=== PATIENT | female | born 1955 | race Hispanic/Latino ===

== ENCOUNTER 2016-10-06 09:21 | Emergency (ER) | payer OTHER ==
[~2016-10-06] VITALS: Ht 172.7 cm; Wt 137.0 kg
[2016-10-06] MEDS ORDERED: DULOXETINE HCL60 MG PO (11:30)
[2016-10-06] MEDS ORDERED: LISINOPRIL-HCT1 EAC1 PO (11:30)
[2016-10-06] MEDS ORDERED: MONTELUKAST SOD10 M1 PO (11:30)
[2016-10-06] MEDS ORDERED: LEVOTHYROXINE25 MCG PO (11:30)
[2016-10-06] MEDS ORDERED: HYDROXYCHLOROQ200 M2 PO (11:30)
[2016-10-06] MEDS ORDERED: GABAPENTIN300 M2 PO (11:31)
[2016-10-06] MEDS ORDERED: NABUMETONE500 M1 PO (11:31)
[2016-10-06] MEDS ORDERED: METFORMIN HCL1000 M1 PO (11:31)
[2016-10-06] MEDS ORDERED: PANTOPRAZOLE SO40 M1 PO (11:31)
[2016-10-06] MEDS ORDERED: CRESTOR10 M1 PO (11:32)
[2016-10-06] MEDS ORDERED: VITAMIN D250000 UNIT PO (11:32)
[2016-10-06] MEDS ORDERED: TRAZODONE HCL100 M1 PO (11:32)
[2016-10-06] MEDS ORDERED: OXYBUTYNIN CHLOR5 M2 PO (11:32)
--- NOTE | 2016-10-06 11:47 | ED GI/GU/ABDOMINAL COMPLAINT ---
History of Present Illness General Chief Complaint: Nausea, Vomiting, Diarrhea Stated Complaint: N/V/D Source: patient Exam Limitations: no limitations Vital Signs & Intake/Output Vital Signs & Intake/Output Vital Signs Date Time Temp Pulse Resp B/P B/P Pulse O2 O2 Flow FiO2 Mean Ox Delivery Rate 10/06 1408 97.8 75 20 128/70 96 10/06 1304 98 Room Air 10/06 1121 97.9 89 18 135/75 96 10/06 0933 97.1 103 18 101/68 99 Room Air ED Intake and Output 10/07 0000 10/06 1200 Intake Total 1000 Output Total Balance 1000 Intake, IV 1000 Patient 302 lb Weight Weight Reported by Patient Measurement Method Allergies Coded Allergies: No Known Allergies (10/06/16) Reconcile Medications Duloxetine HCl 60 MG CAPSULE.DR 1 CAP PO DAILY UNKNOWN (Reported) Ergocalciferol (Vitamin D2) (Vitamin D2) 50,000 UNIT CAPSULE 1 CAP PO QWED SUPPLEMENT (Reported) Gabapentin 300 MG CAPSULE 1 CAP PO TID UNKNOWN (Reported) Hydroxychloroquine Sulfate 200 MG TABLET 1 TAB PO BID UNKNOWN (Reported) Levothyroxine Sodium 25 MCG TABLET 1 TAB PO DAILY AC THYROID (Reported) Lisinopril/Hydrochlorothiazide (Lisinopril-Hctz 20-25 MG Tab) 20 MG-25 MG TABLET 1 TAB PO DAILY HEART (Reported) Metformin HCl 1,000 MG TABLET 1 TAB PO BID DM (Reported) Montelukast Sodium 10 MG TABLET 1 TAB PO DAILY ALLERGIES (Reported) Nabumetone 500 MG TABLET 1 TAB PO BID UNKNOWN (Reported) Ondansetron (Zofran Odt) 4 MG TAB.RAPDIS 1 TAB SL TID PRN NAUSEA/VOMITING Oxybutynin Chloride 5 MG TABLET 1 TAB PO BID BLADDER (Reported) Pantoprazole Sodium 40 MG TABLET. 1 TAB PO DAILY ACID REFLUX (Reported) Rosuvastatin Calcium (Crestor) 10 MG TABLET 1 TAB PO DAILY CHOLESTEROL ( Reported) Trazodone HCl 100 MG TABLET 1 TAB PO QPM SLEEP (Reported) Triage Note: C/O MID ABDOMINAL PAIN WITH VOMITING AND DIARREHA SINCE YESTERDAY. Triage Nurses Notes Reviewed? yes ? n Is pt currently ? No HPI: Ms. Velasquez is a 60 yo f w/ PMH of DM, fibromyalgia, MARGOT, arthritis and HTN presenting to ED w/ daughter for N/V/D. Patient states her sx began yesterday evening after 9pm. Patient had nausea and vomited more than 10 times. Vomited supplies clear without any evidence of blood or bile. Patient also states she started having 3-4 episodes of diarrhea yesterday evening. The nausea vomiting and diarrhea all persisted today with several episodes this morning. Patient denies any abdominal pain, fever, chills, chest pain, shortness of breath. No ill contacts at home. No recent travel. Past History Travel History Traveled to [place] past 21 day No Medical History Any Pertinent Medical History? see below for history Neurological: FIBROMYLAGIA Cardiovascular: hypertension Respiratory: obstructive sleep apnea Musculoskeletal: osteoarthritis Endocrine: diabetes Surgical History Surgical History: appendectomy Psychosocial History What is your primary language U[place]ayan Tobacco Use: Never used ETOH Use: denies use Family History Hx Contributory? No Review of Systems Review of Systems Constitutional: Reports: see HPI. Comments Constitutional: no chills, no fever, no weight loss. HEENT: No visual changes, no sore throat, no congestion Cardiovascular: No chest pain, no palpitations, no orthopnea, or ankle swelling. Skin: No jaundice, no rashes Respiratory: no dyspnea, cough, sputum, or hemoptysis GI: +N/V/D, no abdominal pain : no dysuria, no hematuria, Musculoskeletal: No back pain, no neck pain Neurologic: no numbness or no confusion Psych: No anxiety, depression Heme/endocrine: No bruising, no bleeding polyuria, polydipsia Immunology: No splenectomy Physical Exam Physical Exam Gastrointestinal: normal bowel sounds Comments: Well-developed well-nourished person in no acute distress HEENT: Normal EENT exam, extraocular motion intact, no nystagmus. Pupils PERRLA. Neck: Supple, no lymphadenopathy, normal range of motion without pain or tenderness Back: Nontender, no CVA tenderness. Full range of motion Cardiovascular: Regular rate and rhythms no murmurs rubs or gallops Respiratory: Chest nontender. No respiratory distress.breath sounds clear to auscultation bilaterally Abdomen: Soft, nontender nondistended, no appreciable organomegaly. Normal bowel sounds. No ascites Extremity: No edema, no calf tenderness to palpation, normal and equal pulses. Neuro: Alert oriented x3, motor sensory normal, cranial nerves II through XII grossly intact. Skin: No appreciable rash on exposed skin, skin is warm and dry. Psych: Mood and affect is normal, memory and judgment is normal. Core Measures ACS in differential dx? No Severe Sepsis Present: No Septic Shock Present: No Progress Differential Diagnosis: bowel obstruction, diverticulitis, gastritis, ischemic bowel, inflamm bowel dis, peptic ulcer, PUD/GERD, UTI/pyelo, gastroenteritis Plan of Care: Orders Procedure Date/time Status LIPASE 10/06 1225 Complete LACTIC ACID 10/06 1225 Complete COMPREHENSIVE METABOLIC PANEL 10/06 1225 Complete CBC WITHOUT DIFFERENTIAL 10/06 1225 Complete URINALYSIS 10/06 0937 Complete Laboratory Tests 10/06/16 1525: Lactic Acid Cancelled 10/06/16 1235: Anion Gap 14, Estimated GFR > 60, BUN/Creatinine Ratio 32.2 H, Glucose 97, Lactic Acid 1.3, Calcium 9.2, Total Bilirubin 0.9, AST 17, ALT 27, Alkaline Phosphatase 69, Total Protein 6.9, Albumin 3.9, Globulin 3.0, Albumin/Globulin Ratio 1.3, Lipase 31, CBC w Diff NO MAN DIFF REQ, RBC 4.87, MCV 82.1, MCH 27.4, RDW 13.9, MPV 10.0, Gran % 81.3 H, Lymphocytes % 10.4 L, Monocytes % 7.6, Eosinophils % 0.6, Basophils % 0.1, Absolute Granulocytes 7.1 H, Absolute Lymphocytes 0.9 L, Absolute Monocytes 0.7 H, Absolute Eosinophils 0.1, Absolute Basophils 0, PUBS MCHC 33.3 10/06/16 0944: Urinalysis LIGHT H, Urine Color YEL, Urine Clarity HAZY H, Urine pH 6.0, Ur Specific Bushnell >= 1.030, Urine Protein TRACE H, Urine Ketones NEG, Urine Nitrite NEG, Urine Bilirubin NEG@ICTO, Urine Urobilinogen 0.2, Ur Leukocyte Esterase NEG, Ur Microscopic SEDIMENT EXAMINED, Urine RBC FEW H, Urine WBC 1-3 H, Ur Epithelial Cells FEW, Urine Bacteria MANY H, Granular Casts FEW H, Urine Mucus MANY H, Micro UA Comment MORE INFO: H, Urine Hemoglobin NEG, Urine Glucose NEG Patient is a generally well-appearing morbidly obese 60-year-old female with nausea vomiting and diarrhea for 1.5 days. Likely this is gastroenteritis given the constellation of symptoms. However will obtain basic labs to assess for significant electrolyte derangement or pancreatitis. We will also obtain lactic acidosis. Patient given IV fluids as well as Zofran. No more episodes of vomiting in the emergency department. Will obtain UA for possible UTI. UA shows some bacteria however it is leukocyte esterase negative and nitrite negative. Labs show elevated BUN consistent with dehydration in the setting of increased output (vomiting and diarrhea). She said significantly improved after Zofran. Patient given crackers and joshua viola for PO challenge. Patient tolerated without any issues. Will discharge home with Zofran ODT 4 possible ongoing gastroenteritis. Recommended that the patient need a bland diet. Daughter and patient given return precautions. (SMILEY MATHIS,KERRY) Initial ED EKG: none Departure Departure Time of Disposition: 5 Disposition: HOME OR SELF CARE Condition: Stable Clinical Impression Primary Impression: Gastroenteritis Referrals: MIGUE LIMA (PCP/Family) Additional Instructions: Please make sure that you eat bland food over the next few days until all of her symptoms resolved. You have been prescribed Zofran ODT for nausea vomiting. Place 1 under the tongue every 8 hours as needed for the nausea and vomiting. Encouraged to take plenty of fluids mainly water and vitamin stern or Gatorade. Do not drink any juice, soda or milk as this could be harder to digest for her stomach with the increased sugar as well as the milk products. If you have worsening pain, unable to keep down food or drink, or any other concerning symptoms, please return to the emergency department for further evaluation. Departure Forms: Customer Survey General Discharge Information Prescriptions: Current Visit Scripts Ondansetron (Zofran Odt) 1 TAB SL TID PRN NAUSEA/VOMITING #10 TAB
[2016-10-06 12:47] LABS: ABSOLUTE BASOPHIL COUNT 0 /CUMM (0.0-0.2); ABSOLUTE EOSINOPHIL COUNT 0.1 /CUMM (0.0-0.7); ABSOLUTE GRANULOCYTE CT 7.1 /CUMM (1.4-6.5); ABSOLUTE LYMPH COUNT 0.9 /CUMM (1.2-3.4); ABSOLUTE MONOCYTE COUNT 0.7 /CUMM (0.10-0.60); BASOPHIL % 0.1 % (0.0-2.0); EOSINOPHIL % 0.6 % (0-5); GRANULOCYTE % 81.3 % (42.2-75.2); MEAN CORPUSCULAR HGB 27.4 PG (27.0-31.0); MEAN CORPUSCULAR HGB CONC 33.3 G/DL (33.0-37.0); MEAN CORPUSCULAR VOLUME 82.1 FL (81.0-99.0); PLATELET COUNT 202 /CUMM (130-400); RBC DISTRIBUTION WIDTH 13.9 % (11.5-14.5); RED BLOOD CELL CT 4.87 /CUMM (4.20-5.40); WHITE BLOOD CELL COUNT 8.8 /CUMM (4.8-10.8)
[2016-10-06 14:08] VITALS: BP 128/70
[2016-10-06] MEDS ORDERED: ZOFRAN ODT4 M1 SL (14:59)
== END 2016-10-06 15:00 ==
LOC: ERH 09:21
PROVIDERS: Emergency Medicine
DX: K52.9 Noninfective gastroenteritis and colitis, unspecified (principal)
CPT/HCPCS: 81001; 96374; J2405